=== PATIENT | female | born 1985 | race African-American/Black ===

== ENCOUNTER 2018-09-21 03:40 | Inpatient (IN) | payer OTHER ==
[2018-09-21] MEDS ORDERED: Misoprostol 200 MCG TAB PR PRN (03:51)
[2018-09-21] MEDS ORDERED: Butorphanol Tartrate 1 MG/ML VIAL SLOW IVP PRN (03:51)
[2018-09-21] MEDS ORDERED: Ondansetron PF 4 MG/2 ML Vial IVP PRN (03:51)
[2018-09-21] MEDS ORDERED: NS / Oxytocin 40 units/1000ml 1,000 ML IV PRN (03:51)
[2018-09-21] MEDS ORDERED: Lidocaine 1% (PF) 30 ML VIAL SC PRN (03:51)
[2018-09-21] MEDS ORDERED: Promethazine HCl 25 MG/ML VIAL IM PRN (03:51)
[2018-09-21] MEDS ORDERED: Methylergonovine 0.2 MG/ML VIAL IM PRN (03:51)
[2018-09-21] MEDS ORDERED: Carboprost 250 MCG/ML AMP IM PRN (03:51)
[2018-09-21] MEDS: NS / Oxytocin 40 units/1000ml 1,000 ML IV SCH ×2 (04:20→05:47)
--- NOTE | 2018-09-21 05:42 | PDOC.LDHP ---
Labor and Delivery H&P Chief complaint: contractions, abdominal pain HPI: The patient is a 32YO with no care other than a second trimester U/S that estimated her due date to be 10/06/18 who was brought up to L&D by EMS complaining of contractions. The patient reported that she started feeling contractions yesterday around noon and put off coming to the hospital until the pain was unbearable. The patient reported having a delicate situation at home stating that she has hidden her from all of her family but had to tell them today before coming to the hospital. On exam after an uncomplicated , the patient endorsed a slight headache but denied any blurred or spotty vision, abdominal pain, chest pain or SOB. She denies having any issues during this but had no further monitoring after her second trimester ultrasound. Current gestational age (weeks): 37 (37.6) Due date: 10/06/18 Dating criteria: second trimester ultrasound Grav: 5 Para: 3 (3003; second child at 3 months of age from meningitis) Current complications: other (no care) Abnormal US findings: No Past Medical History: none Current medications: pre- vitamins Previous surgical history: none Allergies/Adverse Reactions: Allergies Allergy/AdvReac Type Severity Reaction Status Date / Time No Known Allergies Allergy Unverified 06/30/17 08:37 Social history: tobacco use (has smoked 2-3 cigarettes/day during ), drug use (Endorses cocaine use. Says she last used ~2 or more months ago. Had 2 youngest children taken from her custody by CPS 2/2 cocaine use in . Says her sister currently has custody over them and she is allowed supervised visits.) - Physical Exam Vital signs reviewed and normal: yes General: NAD, resting Heart: RRR Lungs: nonlabored breathing Extremeties: no edema - Vaginal Exam cm dilated: 10 (patient had delivered before full history was obtained; came in fully dilated and effaced) - OB Labs HIV: unknown RPR: unknown HEPSAg: unknown 1 hour GCT: unknown GBS: unknown
--- NOTE | 2018-09-21 05:43 | PDOC.OPDEL ---
OB Operative/Delivery Note Delivery Dr/Surgeon: Dangelo Ribera Pre-Delivery Diagnosis: active labor Procedure/Post Delivery Dx: spontaneous vaginal delivery Weeks gestation: 38 Anesthesia: none - Additional Findings/Plan Placenta delivered: spontaneous Repaired Obstetrical Laceration: none Estimated blood loss: 100 Post delivery plan: routine recovery Attending Addendum - Attending Addendum Date/Time: 09/21/18 0541 now P4 s/p to early term SGA female AG 07/01. Brought in via EMS and subsequently delivered over an intact perineum to in OA position. Optimal cord clamping performed. Cord cut, blood sampled. Placenta delivered intact via CCT. Uterus firmed with fundal massage and IV pitocin. No lacerations noted. EBL 100 cc. GBS unknown, no prophylaxis.
--- NOTE | 2018-09-21 05:45 | PDOC.LDHP ---
Labor and Delivery H&P HPI: early term by LMP c/w ultrasound in previous with almost no PNC arrived via EMS, c/c/+1, and subsequently delivered. ROM 1 hour BARTACKER. Denies h/ a, vision changes, RUQ/SHYANNE pain. Grav: 5 Para: 4 OB History Details: 4 term SVDs with no reported complications Current complications: other (no pnc) Past Medical History: None Current medications: none Previous surgical history: none Allergies/Adverse Reactions: Allergies Allergy/AdvReac Type Severity Reaction Status Date / Time No Known Allergies Allergy Unverified 06/30/17 08:37 Social history: other (denies WESLEY. Apparently her son is very upset with her for being and is threatening to kill the FOB.) - Physical Exam Abnormal vital signs: initial BP 170's during pushing General: other (in pain) Heart: RRR Lungs: nonlabored breathing Abdomen: gravid Extremeties: no edema FHT: category 1 [place] contractions every: q3-4m - Vaginal Exam Effacement: 100% Station: 1+ - OB Labs Blood type: unknown RH: unknown Antibody Screen: unknown HIV: unknown RPR: unknown HEPSAg: unknown 1 hour GCT: unknown GBS: unknown Urine drug screen: not done (pending) Additional Labs: rubella unknown - Assessment L&D Assessment: term patient in labor - Plan Plan: admit to L&D (UDS, all OB labs, subsequently delivered precipitously.)
[2018-09-21 06:20] LABS: Hemoglobin 9.9 g/dL (12.0-16.0); Mean Corpuscular HGB CONC 32.8 g/dL (32.0-36.0); Mean Corpuscular Hemoglobin 27.4 pg (27.0-31.0); Mean Corpuscular Volume 83.6 fL (78.0-98.0); Mean Platelet Volume 9.5 fL (7.4-10.4); Platelet Count 245 thou/uL (130-400); RBC Distribution Width 13.7 % (11.5-14.5); Red Blood Cell (RBC) Count 3.62 mill/uL (4.20-5.40); White Blood Cell (WBC) Count 13.1 thou/uL (4.8-10.8)
[2018-09-21 06:52] LABS: HBSAB Concentration 3.31 mIU/mL; Hep B Surf AB Non-Reactive (NonReactive); Syphilis Antibody Nonreactive (Nonreactive); Syphilis Antibody Index 0.02 S/CO (<1.00 Non-Reactive)
[2018-09-21 07:12] LABS: HIV (1/2) Antibody/Antigen Non-Reactive (NonReactive); HIV 1/2 INDEX 0.12 S/CO (<1.00)
[2018-09-21 07:43] VITALS: BMI 28.3
[2018-09-21] MEDS ORDERED: Simethicone Chewable 80 MG TAB PO PRN (07:49)
[2018-09-21] MEDS ORDERED: Milk Of Magnesia 30 ML UDCUP PO PRN (07:49)
[2018-09-21] MEDS ORDERED: Bisacodyl 10 MG SUPP PR PRN (07:49)
[2018-09-21] MEDS ORDERED: Adacel (T-DAP) 0.5 ML VIAL IM ONE (07:49)
[2018-09-21] MEDS ORDERED: NS / Oxytocin 40 units/1000ml 1,000 ML IV SCH (07:49)
[2018-09-21 07:59] LABS: Cocaine Metabolite Screen Detected (NotDetected); Medtox Reader # READER 1; Phencyclidine (PCP) Not Detected (NotDetected); THC/Cannabinoid Screen Not Detected (NotDetected)
[2018-09-21 08:00] LABS: Amphetamine Not Detected (NotDetected); Barbiturates Screen Not Detected (NotDetected); Benzodiazepine Screen Not Detected (NotDetected); Medtox Control Line Valid? VALID (VALID); Methadone Not Detected (NotDetected); Methamphetamine Not Detected (NotDetected); Opiate Screen Not Detected (NotDetected); Oxycodone Screen Not Detected (NotDetected); Tricyclic Screen Not Detected (NotDetected)
[2018-09-21 08:05] LABS: HBSAg Index 0.27 S/CO (0-0.99); Hep B Surf Ag Non-Reactive S/CO (NonReactive)
[2018-09-21] MEDS: Ferrous Sulfate 325 MG TAB PO SCH ×2 (10:42→17:07)
[2018-09-21] MEDS: Ibuprofen 800 MG TAB PO SCH ×2 (10:42→17:07)
[2018-09-21] MEDS: Docusate Calcium (SURFAK) 240 MG CAP PO SCH ×2 (10:42→21:22)
[2018-09-21] MEDS: Prenatal Vitamin 1 TAB PO SCH (10:43)
[2018-09-22] MEDS: Ibuprofen 800 MG TAB PO SCH ×2 (04:45→08:42)
--- NOTE | 2018-09-22 06:27 | PDOC.PP ---
Post Progress Note Post Day #: 1 Subjective: Ms. Monte is resting comfortably in bed, pain is well controlled, no RAI, minimal bleeding. PO intake tolerated: yes Flatus: yes Ambulation: yes Vital Signs (12 hours) Temp Pulse Resp BP Pulse Ox 09/22/18 04:45 97.9 F 71 16 119/73 09/21/18 23:47 98.3 F 76 16 115/82 09/21/18 20:00 98.2 F 75 16 125/70 98 Weight Weight 74.843 kg - Physical Examination General: NAD Cardiovascular: no m/r/g, RRR Respiratory: clear to auscultation bilaterally Abdominal: + bowel sounds, no distention, appropriately TTP Neurological: no gross focal deficits Psychiatric: normal affect Result Diagrams: 09/21/18 05:56 Additional Labs: Post Labs Blood Type A POSITIVE 09/21/18 05:56 Hep Bs Antigen Non-Reactive S/CO (NonReactive) 09/21/18 05:56 (1) Vaginal delivery Code(s): O80 - ENCOUNTER FOR FULL-TERM UNCOMPLICATED DELIVERY Status: Acute (2) No care in current Code(s): O09.30 - SUPRVSN OF PREG W INSUFFICIENT ANTENAT CARE, UNSP TRIMESTER Status: Acute (3) Cocaine use Code(s): F14.10 - COCAINE ABUSE, UNCOMPLICATED Status: Acute - Assessment/Plan Viable F to [id number] F at 37.6 wks by reported 2T US s/p 0415 09/21 - routine care, atraumatic precipitous delivery, - labs neg, GBS unknown, Cocaine + - VSS, Hb stable No care - labs ordered and resulted - monitor baby closely Cocaine use in - CPS notified, will be taking legal action - child to be placed 09/24 Dispo: continue to monitor on PP, DC later today <Gen Carlson - Last Filed: 09/22/18 07:52> Vital Signs (12 hours) Temp Pulse Resp BP Pulse Ox 09/22/18 09:00 97.6 F 71 18 110/65 95 09/22/18 08:45 95 09/22/18 04:45 97.9 F 71 16 119/73 Weight Weight 74.843 kg Result Diagrams: 09/21/18 05:56 Additional Labs: Post Labs Blood Type A POSITIVE 09/21/18 05:56 Hep Bs Antigen Non-Reactive S/CO (NonReactive) 09/21/18 05:56 Rubella IgG Antibody 4.21 index (Immune >0.99) 09/21/18 05:56 <Susan Kovacs - Last Filed: 09/22/18 14:35> Attending Addendum - Attending Addendum Date/Time: 09/22/18 0355 I personally evaluated the patient and discussed the management with Dr. Carlson I agree with the History, Examination, Assessment and Plan documented above with any addition or exceptions noted below. Stable PPD #1 s/p precipitous Pt requesting early discharge today. Baby will not be discharged with her. <Susan Kovacs - Last Filed: 09/22/18 14:35>
[2018-09-22] MEDS: Ferrous Sulfate 325 MG TAB PO SCH (08:39)
[2018-09-22] MEDS: Prenatal Vitamin 1 TAB PO SCH (08:40)
[2018-09-22] MEDS: Docusate Calcium (SURFAK) 240 MG CAP PO SCH (08:40)
[2018-09-22 09:13] VITALS: BP 110/65; TEMP 97.6
[2018-09-23] MEDS ORDERED: Prenatal Vitamin 1 TAB PO SCH (09:00)
== END 2018-09-22 13:15 | disposition home or self-care (01) | DRG 806 ==
LOC: L&D/OP 03:40 → EEVIPCON 04:06 → L&D 04:06 → 3SW 08:31
PROVIDERS: ADMIT Emergency Medicine; ATTEND Emergency Medicine
PROC: 10E0XZZ Delivery of Products of Conception, External Approach (ICD-10-PCS; principal; 2018-09-21)
DX: O62.3 Precipitate labor (principal); O99.324 Drug use complicating childbirth; Z37.0 Single live birth; Z3A.38 38 weeks gestation of pregnancy; O36.5930 Maternal care for other known or suspected poor fetal growth, third trimester, not applicable or unspecified; F14.10 Cocaine abuse, uncomplicated; O99.334 Smoking (tobacco) complicating childbirth; F17.210 Nicotine dependence, cigarettes, uncomplicated
CPT/HCPCS: 36415; 80306; 85027; 86706; 86762; 86780; 86850; 86900; 86901; 87340; 87389; 99285; J2001

== ENCOUNTER 2022-09-22 16:28 | Emergency (ER) | payer OTHER, SELFPAY ==
[2022-09-22 17:08] LABS: Bacteria/HPF None Seen HPF (None Seen); Bilirubin Negative (Negative); Blood, Urine Negative (Negative); Clarity Clear (Clear); Glucose, Urine (Dipstick) Normal (Negative); Ketone, Urine 60 mg/dL (Negative); Leukocyte Negative Leu/uL (Negative); Nitrite Negative (Negative); Protein, Urine (Dipstick) 50 mg/dL (Neg-Trace); RBC/HPF 0-3 HPF (0-3); Specific Gravity, Urine 1.035 (1.002-1.036); Squamous Epithelial 0-3 HPF (0-3); Urobilinogen 6 mg/dL (Less than 2); WBC/HPF 0-3 HPF (0-3); pH, Urine 6.5 (5.0-9.0)
[2022-09-22 17:17] LABS: #Eosinphils 0.1 thou/uL (0.0-0.7); #Lymphocytes 1.8 thou/uL (1.20-3.40); #Monocytes 0.8 thou/uL (0.11-0.59); #Neutrophils 3.7 thou/uL (1.40-6.50); %Basophils 0.1 % (0.0-1.0); %Monocytes 12.1 % (0.0-10.0); %Neutrophils 57.8 % (42.0-75.0); Hemoglobin 12.2 g/dL (12.0-16.0); Mean Corpuscular HGB CONC 32.1 g/dL (32.0-36.0); Mean Corpuscular Hemoglobin 28.8 pg (27.0-31.0); Mean Corpuscular Volume 89.8 fl (78.0-98.0); Mean Platelet Volume 8.2 fL (7.4-10.4); Platelet Count 265 10x3/uL (130-400); RBC Distribution Width 12.2 % (11.5-14.5); Red Blood Cell (RBC) Count 4.23 mill/uL (4.20-5.40); White Blood Cell (WBC) Count 6.3 10x3/uL (4.8-10.8)
[2022-09-22 17:24] LABS: BHCG - Serum POSITIVE (NEGATIVE); Pregs Control Background? CLEAR/WHITE (CLR/WHITE); Pregs Control Bar Appear? YES (CONTROL BAR)
[2022-09-22] MEDS ORDERED: Acetaminophen 500 MG TAB ONE (17:37)
[2022-09-22] MEDS ORDERED: Ondansetron ODT 4 MG TAB ONE (17:37)
[2022-09-22 17:43] LABS: ALT (SGPT) 19 U/L (8-55); AST (SGOT) 14 U/L (5-34); Alkaline Phosphatase 61 U/L (40-110); Anion Gap 10 mmol/L (10-20); BUN (Urea Nitrogen) 10 mg/dL (7.0-18.7); Bilirubin, Total 0.8 mg/dL (0.2-1.2); Calc. Creatinine Clearance 0 mL/min (70-130); Carbon Dioxide 23 mmol/L (22-29); Chloride 106 mmol/L (98-107); Estimated GFR 117; Globulin 3.3 g/dL (2.4-3.5); Glucose 92 mg/dL (70-105); Potassium 3.7 mmol/L (3.5-5.1); Protein, Total 7.3 g/dL (6.0-8.3); Sodium 135 mmol/L (136-145)
== END 2022-09-22 19:03 | disposition home or self-care (01) ==
LOC: ERS 16:28
DX: O99.611 Diseases of the digestive system complicating pregnancy, first trimester (principal); K42.9 Umbilical hernia without obstruction or gangrene; O09.511 Supervision of elderly primigravida, first trimester; O99.331 Smoking (tobacco) complicating pregnancy, first trimester; F17.210 Nicotine dependence, cigarettes, uncomplicated; Z3A.01 Less than 8 weeks gestation of pregnancy
CPT/HCPCS: 36415; 76856; 80053; 81003; 81015; 83690; 84702; 84703; 85025; 94760; Q0162

== ENCOUNTER 2024-11-06 18:23 | Emergency (ER) | payer OTHER, SELFPAY ==
[2024-11-06 20:03] LABS: ALT (SGPT) 15 U/L (8-55); AST (SGOT) 15 U/L (5-34); Albumin 3.7 g/dL (3.5-5.0); Alkaline Phosphatase 57 U/L (40-110); Anion Gap 9 mmol/L (10-20); BUN (Urea Nitrogen) 17 mg/dL (7.0-18.7); Bilirubin, Total 0.2 mg/dL (0.2-1.2); Calc. Creatinine Clearance 0 mL/min (70-130); Calcium 8.7 mg/dL (7.8-10.44); Carbon Dioxide 25 mmol/L (22-29); Chloride 108 mmol/L (98-107); Estimated GFR 93; Globulin 3.5 g/dL (2.4-3.5); Glucose 91 mg/dL (70-105); Potassium 4.2 mmol/L (3.5-5.1); Protein, Total 7.2 g/dL (6.0-8.3); Sodium 138 mmol/L (136-145)
[2024-11-06 20:44] LABS: Pregnancy Test - Urine (BHCG) Negative (Negative); Pregu Control Background? CLEAR/WHITE (CLR/WHITE); Pregu Control Bar Appear? YES (CONTROL BAR); Specific Gravity 1.022 (1.002-1.036)
[2024-11-06 21:13] LABS: Bacteria/HPF None Seen HPF (None Seen); Bilirubin Negative (Negative); Blood, Urine Trace (Negative); CAUTI Indications for Culture Pelvic or flank pain; Clarity Clear (Clear); Glucose, Urine (Dipstick) Normal (Negative); Ketone, Urine Negative (Negative); Leukocyte Negative Leu/uL (Negative); Nitrite Negative (Negative); Protein, Urine (Dipstick) Negative (Neg-Trace); RBC/HPF 0-3 HPF (0-3); Specific Gravity, Urine 1.024 (1.002-1.036); Squamous Epithelial 0-3 HPF (0-3); WBC/HPF 0-3 HPF (0-3); pH, Urine 6.5 (5.0-9.0)
[2024-11-06 21:14] LABS: Urine Culture Reflex No No
[2024-11-06] MEDS ORDERED: Cyclobenzaprine 10 MG TAB ONE (21:33)
[2024-11-06] MEDS ORDERED: Ketorolac Tromethamine 30 MG (1 mL) VIAL ONE (21:33)
== END 2024-11-06 22:38 | disposition home or self-care (01) ==
LOC: ERS 18:23
DX: M54.16 Radiculopathy, lumbar region (principal); F17.210 Nicotine dependence, cigarettes, uncomplicated
CPT/HCPCS: 36415; 80053; 81001; 81025; 96374; J1885